=== PATIENT | male | born 1945 | race Caucasian/White ===

== ENCOUNTER 2020-07-03 09:59 | Outpatient (REF) | payer MEDICARE, SELFPAY ==
[2020-07-03 11:11] LABS: MANUAL DIFF FLAG NO
[2020-07-03 11:25] LABS: Basophils Absolute Auto 0.1 X10*3/uL (0.0-0.2); Basophils Percent Auto 0.5 % (0-2); Eosinophils Absolute Auto 0.3 X10*3/uL (0.0-0.4); Eosinophils Percent Auto 2.9 % (0-4); Hemoglobin 18.9 g/dl (14.0-18.0); Imm Gran Abs Auto 0.03 X10*3/uL (0.00-0.03); Imm Gran Pct Auto 0.3 % (0.0-0.4); Lymphocytes Absolute Auto 3.8 X10*3/uL (1.2-4.9); Lymphocytes Percent Auto 34.4 % (20-40); Mean Corpuscular Hemoglobin 31.6 pg (27.0-33.0); Mean Corpuscular Volume 95.5 fL (80-98); Mean Platelet Volume 11.1 fL (9.4-12.4); Monocytes Absolute Auto 1.1 X10*3/uL (0.1-1.2); Monocytes Percent Auto 9.5 % (2-11); Neutrophils Absolute Auto 5.8 X10*3/uL (2.0-8.3); Neutrophils Percent Auto 52.4 % (45-73); Platelet Count 220 X10*3/uL (160-400); Red Blood Count 5.99 X10*6/uL (4.60-5.80); Red Cell Distribution Width 14.8 % (11.0-16.0); White Blood Count 11.1 X10*3/uL (4.8-10.8)
[2020-07-03 11:31] LABS: Hematocrit 57.2 % (42-52)
[2020-07-03 11:47] LABS: Alanine Aminotransferase 39 U/L (0-40); Alkaline Phosphatase 89 U/L (39-117); Anion Gap 14 (12-20); Aspartate Amino Transferase 32 U/L (5-37); Bilirubin Total 1.1 mg/dL (0.0-1.0); Blood Urea Nitrogen 28 mg/dL (9-16); Carbon Dioxide 27 mmol/L (22-29); Chloride 102 mmol/L (96-108); Cholesterol 181 mg/dL; Estimated Glomerular Filt Rate 46; Glucose Fasting 95 mg/dL (60-99); HDL Cholesterol 29 mg/dL; LDL Cholesterol Calculated 102 mg/dl; Potassium 4.2 mmol/l (3.3-5.1); Sodium 139 mmol/L (135-145); Total Protein 7.3 g/dL (6.5-8.0); Triglycerides 253 mg/dL
== END 2020-07-03 10:00 | disposition home or self-care (01) ==
LOC: HO.MANLDS 09:59
PROVIDERS: PCP Physician Assistant; Visit Provider Physician Assistant
DX: Z00.00 Encounter for general adult medical examination without abnormal findings (principal); Z13.220 Encounter for screening for lipoid disorders
CPT/HCPCS: 36415; 80053; 80061; 85025

== ENCOUNTER 2020-10-06 13:56 | Outpatient (REF) | payer MEDICARE, SELFPAY ==
[2020-10-06 18:29] LABS: Free T4 (Free Thyroxine) 1.01 ng/dL (0.71-1.85); Thyroid Stimulating Hormone 5.88 uIU/mL (0.32-4.0)
== END 2020-10-06 13:57 | disposition home or self-care (01) ==
LOC: HO.MANLDS 13:56
PROVIDERS: PCP Internal Medicine; Visit Provider Physician Assistant
DX: E03.9 Hypothyroidism, unspecified (principal)
CPT/HCPCS: 36415; 84439; 84443

== ENCOUNTER 2020-10-21 10:25 | Outpatient (REF) | payer MEDICARE, SELFPAY ==
[2020-10-21 14:05] LABS: Free T4 (Free Thyroxine) 0.95 ng/dL (0.71-1.85); Thyroid Stimulating Hormone 5.99 uIU/mL (0.32-4.0)
== END 2020-10-21 10:26 | disposition home or self-care (01) ==
LOC: HO.MANLDS 10:25
PROVIDERS: PCP Internal Medicine; Visit Provider Physician Assistant
DX: E03.9 Hypothyroidism, unspecified (principal)
CPT/HCPCS: 36415; 84439; 84443

== ENCOUNTER 2022-07-04 15:36 | Outpatient (REF) | payer MEDICARE, SELFPAY ==
[2022-07-04 18:20] LABS: MANUAL DIFF FLAG NO
[2022-07-04 18:24] LABS: Basophils Percent Auto 0.6 % (0-2); Eosinophils Percent Auto 0.3 % (0-4); Hematocrit 39.5 % (42.0-52.0); Hemoglobin 13.9 g/dl (14.0-18.0); Imm Gran Abs Auto 0.03 X10*3/uL (0.00-0.03); Imm Gran Pct Auto 0.5 % (0.0-0.4); Lymphocytes Absolute Auto 0.8 X10*3/uL (1.2-4.9); Lymphocytes Percent Auto 12.6 % (20-40); Mean Corpuscular HGB Conc 35.2 g/dl (31.0-36.0); Mean Corpuscular Hemoglobin 35.2 pg (27.0-33.0); Mean Platelet Volume 10.3 fL (9.4-12.4); Monocytes Absolute Auto 0.4 X10*3/uL (0.1-1.2); Monocytes Percent Auto 5.6 % (2-11); Neutrophils Percent Auto 80.4 % (45-73); Platelet Count 200 X10*3/uL (160-400); Red Blood Count 3.95 X10*6/uL (4.60-5.80); Red Cell Distribution Width 18.6 % (11.0-16.0); White Blood Count 6.3 X10*3/uL (4.8-10.8)
[2022-07-04 19:02] LABS: Ferritin 135 ng/mL (20-250); Iron 89 mcg/dL (45-160); Percent Iron Saturation 32 % (15-50); Total Iron Binding Capacity 274 mcg/dL (228-428); Unsaturated Iron Binding 185 ug/dL
== END 2022-07-04 15:37 | disposition home or self-care (01) ==
LOC: HO.MANLDS 15:36
PROVIDERS: Visit Provider Physician Assistant
DX: D50.0 Iron deficiency anemia secondary to blood loss (chronic) (principal)
CPT/HCPCS: 36415; 82728; 83540; 85025

== ENCOUNTER 2025-01-03 14:16 | Outpatient (REF) | payer MEDICARE, SELFPAY ==
--- OUTSIDE RECORDS SUMMARY | 2025-01-03 14:19 | XMS_ITS | Clinical Summary ---
Author Organization [facility], Address [address] [place] [address] [place] [phone] Phone Care Team Providers Care Puppet Engineer Name Role Phone Joel Evans DO Primary Care Provider [phone] Allergies Active Allergy Reactions Criticality Noted Date Comments Atorvastatin Other (see comments) 08/07/2020 Influenza Vaccines Other (see comments),Swelling High 08/07/2020 Influenza Virus Vaccine 06/11/2021 Nsaids 08/02/2021 Medications allopurinol (ZYLOPRIM) 100 MG tablet Take 100 mg by mouth 2 (two) times a day Active cyanocobalamin (VITAMIN B-12) 100 MCG tablet Take 200 mcg by mouth in the morning. Active Langhorne-3 1000 MG capsule Take 1 capsule by mouth twice a day Active nitroglycerin (NITROSTAT) 0.4 MG SL tablet nitroglycerin 0.4 mg sublingual tablet Active NIFEdipine CC (ADALAT CC) 30 MG 24 hr tablet nifedipine ER 30 mg tablet,extended release TAKE 1 TABLET BY MOUTH EVERY DAY Active carvedilol (COREG) 6.25 MG tablet Take 6.25 mg by mouth in the morning and 6.25 mg in the evening. Take with meals. 1 Active escitalopram (LEXAPRO) 10 MG tablet Take 10 mg by mouth at bed time Active levothyroxine (SYNTHROID, LEVOTHROID) 75 MCG tablet Take 75 mcg by mouth 1 (one) time each day Active apixaban (ELIQUIS) 5 MG tablet Take 1 tablet by mouth 2 (two) times a day 1 Active acetaminophen (TYLENOL) 325 MG tablet Take 650 mg by mouth every 6 (six) hours if needed 1 Active ALPRAZolam (XANAX) 0.25 MG tablet Take 0.25 mg by mouth 3 (three) times a day if needed 2 Active Cholecalcifero l (Vitamin D) 50 MCG (1999) capsule Take 1 tablet by mouth 1 (one) time each day Active tiZANidine (ZANAFLEX) 4 MG tablet tizanidine 4 mg tablet TAKE 1 TABLET BY MOUTH EVERY 6 HOURS FOR 14 DAYS NEEDED Active Active Problems Problem Noted Date Diagnosed Date Anemia 07/04/2022 Essential hypertension 06/07/2022 Proteinuria 09/20/2021 Benign prostatic hyperplasia without lower urinary tract symptom 08/19/2021 Left inguinal hernia 08/19/2021 Acute nontraumatic kidney injury 09/02/2020 Overview (03/14/2022): Last Assessment & Plan: Possibly cardiorenal syndrome, creatinine stable. Trend BMP, repeat is pending this afternoon. -Avoid nephrotoxic medications, although benefit of diuretics felt to outweigh risk. -Avoid NSAIDs. -Daily BMP monitoring Last Assessment & Plan: Possibly cardiorenal syndrome, creatinine stable. Trend BMP, repeat is pending this afternoon. -Avoid nephrotoxic medications, although benefit of diuretics felt to outweigh risk. -Avoid NSAIDs. -Daily BMP monitoring Last Assessment & Plan: Baseline creatinine appears to be from a 1.3-1.6 On admission creatinine was 1.6 and has increased to 2.0 Patient was treated with IV Lasix on 08/21/2021 however Lasix has been held. -No further diuretic therapy. -Monitor renal function. Last Assessment & Plan: Baseline creatinine appears to be from a 1.3-1.6 On admission creatinine was 1.6 and has increased to 2.0 Patient was treated with IV Lasix on 08/21/2021 however Lasix has been held. -No further diuretic therapy. -Monitor renal function. Stage 3a chronic kidney disease 08/12/2020 Overview (09/15/2021): Last Assessment & Plan: Creatinine appears to be at baseline, continue to monitor Hypertensive disorder 11/21/2017 Overview (09/15/2021): Last Assessment & Plan: Controlled on present therapy. No changes. Last Assessment & Plan: Blood pressure initially was recorded at 120/60 however he reports that this is low for him so his blood pressure was rechecked and got 140/70. He is currently on carvedilol 6.25 mg twice daily. Last Assessment & Plan: Blood pressure initially was recorded at 120/60 however he reports that this is low for him so his blood pressure was rechecked and got 140/70. He is currently on carvedilol 6.25 mg twice daily. Last Assessment & Plan: -Blood pressures currently well controlled, continue Coreg and nifedipine Gout 11/21/2017 Overview (09/15/2021): Last Assessment & Plan: Continued on home dose of allopurinol 100 mg twice daily. Prophylactic dosing, no acute symptoms. Last Assessment & Plan: Continued on home dose of allopurinol 100 mg twice daily. Prophylactic dosing, no acute symptoms. Last Assessment & Plan: -Continue allopurinol Neuropathy 11/21/2017 Hyperlipidemia 10/10/2011 Overview (09/15/2021): Last Assessment & Plan: I have added a lipid profile to his labs in a week. Last Assessment & Plan: Repeat lipid panel this morning shows total cholesterol 188, HDL 31, LDL 127 and triglycerides 148. Allergic to statins Last Assessment & Plan: Repeat lipid panel this morning shows total cholesterol 188, HDL 31, LDL 127 and triglycerides 148. Allergic to statins Atrial arrhythmia 10/10/2011 Overview (09/15/2021): Last Assessment & Plan: He continues to have atrial fibrillation however he is rate controlled at 88 bpm. He is scheduled to have a Holter monitor for 30 days placed today. He is on amiodarone 200 mg daily, Eliquis 5 mg twice daily for anticoagulation and carvedilol 6.25 mg twice daily. He reports having a discomfort in his chest with palpitations and thinks he is having arrhythmias during that time. He continues to take amiodarone 200 mg daily however he is interested in possible cardioversion which he has had several and has not been sustained in sinus rhythm, or possible ablation to help resolve atrial fibrillation. He was asked to follow-up with Dr. Corley after his Holter monitor has been completed so they could discuss these options. Last Assessment & Plan: S/p ablation in February 2001, remains on anticoagulation Patient appears to be in sinus rhythm. No longer takes amiodarone -Continue Coreg Resolved Problems Problem Noted Date Diagnosed Date Resolved Date Chronic kidney disease 08/07/202009/23 Immunizations Immunization Administration Dates Next Due Pfizer SARS-COV-2 05/26/2021,,09/27/2020,09/12/2020 ,08/31/2020,08/22/2020 Pneumococcal Conjugate 13-Valent 11/03/2020,09/28 Pneumococcal Polysaccharide 06/10/2021 Shingrix 03/19/2020 Tdap 11/10/2017 Zoster 03/19/2020,07/28/2019 Social History Tobacco Use Types Packs/Day Years Used Date Smoking Tobacco: Former Cigarettes Sex and Gender Information Value Date Recorded Sex Assigned at Not on file Legal Sex Male 2:48 PM EST Gender Identity Not on file Sexual Orientation Not on file Last Filed Vital Signs Vital Sign Reading Time Taken Comments Blood Pressure 110/60 12/06/2022 10:07 AM EDT Pulse 68 12/06/2022 10:07 AM EDT Temperature - - Respiratory Rate 14 12/06/2022 10:07 AM EDT Oxygen Saturation - - Inhaled Oxygen Concentration - - Weight 103 kg (227 lb) 12/06/2022 10:07 AM EDT Height 177.8 cm (5' 10 ) 12/06/2022 10:07 AM EDT Body Mass Index 32.57 12/06/2022 10:07 AM EDT Plan of Treatment Health Maintenance Due Date Last Done Comments Pneumococcal Vaccine: 50+ Years Completed 06/10/2021, 11/03/2020, 10/13/2020 Pneumococcal Vaccine: Peds (0 to 5 Years) and At-Risk Patients (6 to 49 Years) Discontinued 06/10/2021, 11/03/2020, 10/13/2020 Hepatitis B Vaccine Aged Out No longe r eligible based on patient's age to complete this topic Insurance [facility] Medicare Care Teams Puppet Engineer Relationship Specialty Start Date End Date Joel Evans DO [address] [place] [phone] PCP - General Internal Medicine 03/23/21
[2025-01-03 18:36] LABS: MANUAL DIFF FLAG NO
[2025-01-03 18:38] LABS: Basophils Percent Auto 0.7 % (0-2); Eosinophils Absolute Auto 0.1 X10*3/uL (0.0-0.4); Hematocrit 43.6 % (42.0-52.0); Hemoglobin 14.5 g/dl (14.0-18.0); Imm Gran Abs Auto 0.01 X10*3/uL (0.00-0.03); Imm Gran Pct Auto 0.2 % (0.0-0.4); Lymphocytes Absolute Auto 1.1 X10*3/uL (1.2-4.9); Lymphocytes Percent Auto 18.1 % (20-40); Mean Corpuscular HGB Conc 33.3 g/dl (31.0-36.0); Mean Corpuscular Hemoglobin 32.5 pg (27.0-33.0); Mean Corpuscular Volume 97.8 fL (80.0-98.0); Mean Platelet Volume 10.6 fL (9.4-12.4); Monocytes Absolute Auto 0.7 X10*3/uL (0.1-1.2); Monocytes Percent Auto 11.4 % (2-11); Neutrophils Absolute Auto 4.1 x10*3/uL (2.0-8.3); Neutrophils Percent Auto 67.6 % (45-73); Platelet Count 210 X10*3/uL (160-400); Red Blood Count 4.46 X10*6/uL (4.60-5.80)
[2025-01-03 19:12] LABS: Alanine Aminotransferase 18 U/L (0-40); Albumin Level 4.2 g/dL (3.5-5.0); Alkaline Phosphatase 83 U/L (39-117); Anion Gap 12 (12-20); Aspartate Amino Transferase 33 U/L (5-37); Blood Urea Nitrogen 23 mg/dL (9-16); Calcium 9.8 mg/dL (8.4-10.2); Carbon Dioxide 24 mmol/L (22-29); Chloride 108 mmol/L (96-108); Cholesterol 181 mg/dL (<200); Estimated Glomerular Filt Rate 49; Glucose Random 89 mg/dL (60-115); HDL Cholesterol 26 mg/dL (>40); Iron 64 mcg/dL (45-160); LDL Cholesterol Calculated 126 mg/dL (<100); Percent Iron Saturation 28 % (15-50); Potassium 4.5 mmol/L (3.3-5.1); Sodium 139 mmol/L (135-145); Total Iron Binding Capacity 227 mcg/dL (228-428); Total Protein 7.4 g/dL (6.5-8.0); Triglycerides 148 mg/dL (<150); Unsaturated Iron Binding 163 ug/dL
[2025-01-03 19:27] LABS: Ferritin 158 ng/mL (20-250)
[2025-01-03 19:38] LABS: Folate 13.3 ng/mL (> or = 4.0); Vitamin B12 981 pg/mL (200-900)
[2025-01-04 03:21] LABS: Estimated Average Glucose 103 mg/dL; Hemoglobin A1C 126.8404 umol/L; Hemoglobin A1c % 5.2 % (<6.0); Total Hemoglobin (HGBA1C) 3833.4201 umol/L
== END 2025-01-03 14:17 | disposition home or self-care (01) ==
LOC: HO.MANLDS 14:16
PROVIDERS: Visit Provider Physician Assistant
DX: I10 Essential (primary) hypertension (principal); Q28.8 Other specified congenital malformations of circulatory system
CPT/HCPCS: 36415; 80053; 80061; 82306; 82607; 82728; 82746; 83036; 83540; 85025